=== PATIENT | female | born 1990 | race Two or more races ===

== ENCOUNTER 2016-07-16 15:39 | Outpatient (CLI) | payer SELFPAY ==
[2016-07-16 16:50] LABS: APPEARANCE,URINE CLEAR; BILIRUBIN,URINE NEGATIVE (NEGATIVE); GLUCOSE, URINE NEGATIVE (NEGATIVE); KETONES,URINE NEGATIVE (NEGATIVE); LEUKOCYTE ESTERASE,URINE TRACE (NEGATIVE); NITRITE,URINE NEGATIVE (NEGATIVE); PROTEIN,URINE NEGATIVE (NEGATIVE); URINE SPECIFIC GRAVITY 1.008; UROBILINOGEN,URINE NEGATIVE mg/dL (<2.0)
[2016-07-16 17:10] LABS: URINE BARBITURATES SCREEN NEGATIVE; URINE METHADONE SCREEN NEGATIVE; URINE OPIATES LOW NEGATIVE; URINE PHENCYCLIDINE SCREEN NEGATIVE
== END 2016-07-16 17:46 | disposition home or self-care (01) ==
LOC: LC 15:39
PROVIDERS: ATTEND Obstetrics & Gynecology
PROC: 4A1HXCZ Monitoring of Products of Conception, Cardiac Rate, External Approach (ICD-10-PCS; principal; 2016-07-16)
DX: O47.1 False labor at or after 37 completed weeks of gestation (principal); Z3A.39 39 weeks gestation of pregnancy
CPT/HCPCS: 59025; 80307; 81005

== ENCOUNTER 2016-07-17 22:02 | Inpatient (IN) | payer SELFPAY ==
[2016-07-17 22:39] LABS: AMNISURE (ROM) POSITIVE (NEGATIVE)
[2016-07-17 22:41] LABS: APPEARANCE,URINE CLOUDY; BILIRUBIN,URINE NEGATIVE (NEGATIVE); GLUCOSE, URINE NEGATIVE (NEGATIVE); KETONES,URINE NEGATIVE (NEGATIVE); LEUKOCYTE ESTERASE,URINE LARGE (NEGATIVE); NITRITE,URINE NEGATIVE (NEGATIVE); PROTEIN,URINE 30 mg/dL (NEGATIVE); URINE SPECIFIC GRAVITY 1.026
[2016-07-17] MEDS ORDERED: RINGERS SOLUTION,LACTATED 1,000 ML IV PRN (22:53)
[2016-07-17] MEDS ORDERED: RINGERS SOLUTION,LACTATED 1,000 ML IV ONE (22:53)
[2016-07-17 22:59] LABS: URINE BARBITURATES SCREEN NEGATIVE; URINE METHADONE SCREEN NEGATIVE; URINE OPIATES LOW NEGATIVE; URINE PHENCYCLIDINE SCREEN NEGATIVE
[2016-07-17 23:34] LABS: ABSOLUTE EOSINOPHILS # (AUTO) 0.3 10^3/uL (0.0-0.6); ABSOLUTE LYMPHOCYTES (AUTO) 1.6 10^3/uL (0.5-4.7); ABSOLUTE MONOCYTES (AUTO) 0.5 10^3/uL (0.1-1.4); ABSOLUTE NEUT (AUTO) 4.3 10^3/uL (1.7-8.2); BASOPHILS % (AUTO) 0.7 % (0-2); EOSINOPHILS % (AUTO) 4.1 % (0-6); HEMATOCRIT 37.5 % (36.0-47.0); HEMOGLOBIN 12.8 g/dL (12.0-15.5); HGB HCT DIFFERENCE 0.9; LYMPHOCYTES % (AUTO) 23.4 % (13-45); MEAN CORPUSCULAR HEMOGLOBIN 29.8 pg (27.0-33.4); MEAN CORPUSCULAR HGB CONC 34.1 g/dL (32.0-36.0); MEAN CORPUSCULAR VOLUME 87 fl (80-97); RED BLOOD COUNT 4.29 10^6/uL (3.72-5.28); RED CELL DISTRIBUTION WIDTH 13.4 % (11.5-14.0); SEGMENTED NEUTROPHILS % (AUTO) 64.8 % (42-78); WHITE BLOOD COUNT 6.7 10^3/uL (4.0-10.5)
[2016-07-18] MEDS ORDERED: OXYTOCIN/NORMAL SALINE 1,000 ML IV PRN ×2 (04:32→10:21)
[2016-07-18] MEDS ORDERED: OXYTOCIN/NORMAL SALINE 0 UNIT/0 ML RTUINJ ONE (04:51)
[2016-07-18] MEDS ORDERED: LIDOCAINE 1% INJ-PF (10 MG/ML) 30 ML SDV ONE (06:34)
[2016-07-18] MEDS ORDERED: MISOPROSTOL 0.2 MG TABLET ONE (06:34)
[2016-07-18] MEDS ORDERED: OXYTOCIN/NORMAL SALINE 20 UNIT/1,000 ML RTUINJ ONE (06:34)
--- NOTE | 2016-07-18 08:01 | L&D Flow Sheet ---
LD Flowsheet Datetime Report Generated by CPN: 07/18/2016 08:00 Datetime: 07/18/2016 07:56 Monitor Interventions for UA: Conception Adjusted (Juli Anjali, RN) Monitor Interventions for FHR: Ultrasound Adjusted (Juli Anjali, RN) Pitocin (milliunit): Pitocin Increased to (milliunits) @ 10 (Juli Anjali, RN) Datetime: 07/18/2016 07:41 Patient Position/Activity: Left Lateral; Peanut Ball (Juli Anjali, RN) Datetime: 07/18/2016 07:24 Patient Position/Activity: Tailors (Juli Anjali, RN) Datetime: 07/18/2016 07:17 Pitocin (milliunit): Pitocin Increased to (milliunits) @ 8 (Juli Anjali, RN) Datetime: 07/18/2016 07:15 Communication: Report Given to @ Colette, RN and A.Anjali, RN; care relinquished at this time. (Alana Gallegos RN) Datetime: 07/18/2016 07:06 NBP Sys/Nevin/Mean (mmHg): 111 (QS system process) : 65 (QS system process) : 81 (QS system process) Pulse: 54 (QS system process) LaborFlag: OB Triage (QS system process) Datetime: 07/18/2016 07:00 Monitor Mode: External; Palpation (Alana Gallegos RN) Frequency (min): 2.5-3.5 (Alana Gallegos RN) Quality: Moderate (Alana Gallegos RN) Duration (sec): 60-80 (Alana Gallegos RN) Resting Tone (Palpate): Relaxed (Alana Gallegos RN) Monitor Mode: External US (Alana Gallegos RN) FHR Baseline Rate : 115 (Alana Gallegos RN) Variability: Moderate 6-25 bpm (Alana Gallegos RN) Accelerations: 15X15 (Alana Gallegos RN) Decelerations: None (Alana Gallegos RN) Pitocin (milliunit): Pitocin Remains (milliunits) @ 6 (Alana Field, RN) Datetime: 07/18/2016 06:45 Monitor Mode: External; Palpation (Alana Field, RN) Frequency (min): 2.5-4.5 (Alana Field, RN) Quality: Moderate (Alana Field, RN) Duration (sec): 70-90 (Alana Field, RN) Resting Tone (Palpate): Relaxed (Alana Field, RN) Monitor Mode: External US (Alana Field, RN) FHR Baseline Rate : 115 (Alana Field, RN) Variability: Moderate 6-25 bpm (Alana Field, RN) Accelerations: 15X15 (Alana Field, RN) Decelerations: None (Alana Field, RN) Pitocin (milliunit): Pitocin Remains (milliunits) @ 6 (Alana Field, RN) Datetime: 07/18/2016 06:36 NBP Sys/Nevin/Mean (mmHg): 103 (QS system process) : 62 (QS system process) : 77 (QS system process) Pulse: 58 (QS system process) LaborFlag: OB Triage (QS system process) Datetime: 07/18/2016 06:30 Monitor Mode: External; Palpation (Alana Gallegos, RN) Frequency (min): 2-3 (Alana Gallegos, RN) Quality: Moderate (Alana Field, RN) Duration (sec): 60-110 (Alana , RN) Resting Tone (Palpate): Relaxed (Alana Gallegos, RN) Monitor Mode: External US (Alana Field, RN) FHR Baseline Rate : 120 (Alana Field, RN) Variability: Moderate 6-25 bpm (Alana Field, RN) Accelerations: 15X15 (Alana Field, RN) Decelerations: None (Alana Field, RN) Pitocin (milliunit): Pitocin Increased to (milliunits) @ 6 (Alana Field, RN) Datetime: 07/18/2016 06:29 Dilatation (cm): 7.0 (Alana Gallegos, RN) Effacement (%): 80 (Alana Gallegos, RN) Station: 0 (Alana Gallegos, RN) Exam by: MASOOD Pulliam (Alana Gallegos, RN) Vaginal Bleeding: Normal Show (Alana Gallegos, RN) Cervix, Consistency: Soft (Alana Gallegos, RN) Cervix, Position: Posterior (Alana Gallegos, RN) Datetime: 07/18/2016 06:15 Monitor Mode: External; Palpation (Alana Gallegos, RN) Frequency (min): 1.5-7 (Alana Gallegos, RN) Quality: Moderate (Alana Gallegos, RN) Duration (sec): 50-100 (Alana Gallegos, RN) Resting Tone (Palpate): Relaxed (Alana Gallegos, RN) Monitor Mode: External US (Alana Gallegos, RN) FHR Baseline Rate : 115 (Alana Gallegos, RN) Variability: Moderate 6-25 bpm (Alana Gallegos, RN) Accelerations: 15X15 (Alana Gallegos, RN) Decelerations: None (Alana Gallegos, RN) Pitocin (milliunit): Pitocin Remains (milliunits) @ 4 (Alana Gallegos, RN) Datetime: 07/18/2016 06:06 NBP Sys/Nevin/Mean (mmHg): 97 (QS system process) : 55 (QS system process) : 69 (QS system process) Pulse: 61 (QS system process) LaborFlag: OB Triage (QS system process) Datetime: 07/18/2016 06:00 Monitor Mode: External; Palpation (Alana Field, RN) Frequency (min): 4.5-5 (Alana Field, RN) Quality: Moderate (Alana Field, RN) Duration (sec): 60-80 (Alana Field, RN) Resting Tone (Palpate): Relaxed (Alana Field, RN) Monitor Mode: External US (Alana Field, RN) FHR Baseline Rate : 115 (Alana Field, RN) Variability: Moderate 6-25 bpm (Alana Field, RN) Accelerations: 15X15 (Alana Field, RN) Decelerations: None (Alana Field, RN) Pitocin (milliunit): Pitocin Increased to (milliunits) @ 4 (Alana Field, RN) Datetime: 07/18/2016 05:45 Monitor Mode: External; Palpation (Alana Field, RN) Frequency (min): 3-4 (Alana Field, RN) Quality: Moderate (Alana Field, RN) Duration (sec): 60-70 (Laana Field, RN) Resting Tone (Palpate): Relaxed (Alana Field, RN) Monitor Mode: External US (Alana Field, RN) FHR Baseline Rate : 115 (Alana Field, RN) Variability: Moderate 6-25 bpm (Alana Field, RN) Accelerations: 15X15 (Alana Field, RN) Decelerations: Variable (Alana Field, RN) Decelerations: None (Alana Field, RN) Pitocin (milliunit): Pitocin Remains (milliunits) @ 2 (Alana Field, RN) Datetime: 07/18/2016 05:36 NBP Sys/Nevin/Mean (mmHg): 96 (QS system process) : 55 (QS system process) : 71 (QS system process) Pulse: 56 (QS system process) LaborFlag: OB Triage (QS system process) Datetime: 07/18/2016 05:30 Monitor Mode: External; Palpation (Alana Field, RN) Frequency (min): 3-4.5 (Alana Field, RN) Quality: Moderate (Alana Field, RN) Duration (sec): 50-70 (Alana Field, RN) Resting Tone (Palpate): Relaxed (Alana Field, RN) Monitor Mode: External US (Alana Field, RN) FHR Baseline Rate : 115 (Alana Field, RN) Variability: Moderate 6-25 bpm (Alana Field, RN) Accelerations: 15X15 (Alana Field, RN) Decelerations: None (Alana Field, RN) Pitocin (milliunit): Pitocin Remains (milliunits) @ 2 (Alana Field, RN) Datetime: 07/18/2016 05:15 Monitor Mode: External; Palpation (Alana Field, RN) Frequency (min): 4-5.5 (Alana Field, RN) Quality: Moderate (Alana Field, RN) Duration (sec): 50-60 (Alana Field, RN) Resting Tone (Palpate): Relaxed (Alana Field, RN) Monitor Mode: External US (Alana Field, RN) FHR Baseline Rate : 115 (Alana Field, RN) Variability: Moderate 6-25 bpm (Alana Field, RN) Accelerations: 15X15 (Alana Field, RN) Decelerations: None (Alana Field, RN) Pitocin (milliunit): Pitocin Remains (milliunits) @ 2 (Alana Field, RN) Datetime: 07/18/2016 05:06 NBP Sys/Nevin/Mean (mmHg): 100 (QS system process) : 59 (QS system process) : 77 (QS system process) Pulse: 57 (QS system process) LaborFlag: OB Triage (QS system process) Datetime: 07/18/2016 05:02 Pitocin (milliunit): Pitocin Started (milliunits) @ 2; Pitocin 20 Units in 1000ml NS (Alana Field, RN) Datetime: 07/18/2016 05:00 Monitor Mode: External; Palpation (Alana Field, RN) Frequency (min): 5-7.5 (Alana Field, RN) Quality: Moderate (Alana Field, RN) Duration (sec): 80-120 (Alana Field, RN) Resting Tone (Palpate): Relaxed (Alana Field, RN) Monitor Mode: External US (Alana Field, RN) FHR Baseline Changes: Unable to Determine (Alana Field, RN) Variability: Moderate 6-25 bpm (Alana Field, RN) Datetime: 07/18/2016 04:55 I/O Interventions: Up to BR (Alana Field, RN) Datetime: 07/18/2016 04:38 NBP Sys/Nevin/Mean (mmHg): 103 (QS system process) : 65 (QS system process) : 80 (QS system process) Pulse: 51 (QS system process) LaborFlag: OB Triage (QS system process) Datetime: 07/18/2016 04:30 Monitor Mode: External; Palpation (Alana Gallegos, RN) Frequency (min): 4.5-6 (Alana Gallegos, RN) Quality: Moderate (Alana , RN) Duration (sec): 80-100 (Alana Field, RN) Resting Tone (Palpate): Relaxed (Alana , RN) Monitor Mode: External US (Alana , RN) FHR Baseline Rate : 115 (Alana Field, RN) Variability: Moderate 6-25 bpm (Alana Field, RN) Accelerations: 15X15 (Alana Field, RN) Datetime: 07/18/2016 04:18 Communication: RN Reviewed Strip; Provider Orders Received; Call/Page Placed to Provider (Alana Gallegos RN) Communication Comments: Informed Dr. Ashley of contraction frequency; orders received to start Pitocin (Alana Gallegos, RN) Datetime: 07/18/2016 04:07 NBP Sys/Nevin/Mean (mmHg): 153 (QS system process) : 64 (QS system process) : 85 (QS system process) Pulse: 55 (QS system process) LaborFlag: OB Triage (QS system process) Datetime: 07/18/2016 04:00 Monitor Mode: External; Palpation (Alana Field, RN) Frequency (min): 5-7 (Alana Field, RN) Quality: Moderate (Alana Field, RN) Duration (sec): 60-120 (Alana Field, RN) Resting Tone (Palpate): Relaxed (Alana Field, RN) Monitor Mode: External US (Alana Field, RN) FHR Baseline Rate : 120 (Alana Field, RN) Variability: Moderate 6-25 bpm (Alana Field, RN) Accelerations: 15X15 (Alana Field, RN) Decelerations: None (Alana Field, RN) Datetime: 07/18/2016 03:36 NBP Sys/Nevin/Mean (mmHg): 109 (QS system process) : 67 (QS system process) : 83 (QS system process) Pulse: 55 (QS system process) LaborFlag: OB Triage (QS system process) Datetime: 07/18/2016 03:30 Monitor Mode: External; Palpation (Alana Field, RN) Frequency (min): 4 (Alana Field, RN) Quality: Moderate (Alana Field, RN) Duration (sec): 90-110 (Alana Field, RN) Resting Tone (Palpate): Relaxed (Alana Field, RN) Monitor Mode: External US (Alana Field, RN) FHR Baseline Rate : 125 (Alana Field, RN) Variability: Moderate 6-25 bpm (Alana Field, RN) Accelerations: 15X15 (Alana Field, RN) Decelerations: None (Alana Field, RN) Datetime: 07/18/2016 03:14 Patient Position/Activity: Tailors (Alana Gallegos, RN) Datetime: 07/18/2016 03:06 NBP Sys/Nevin/Mean (mmHg): 104 (QS system process) : 59 (QS system process) : 77 (QS system process) Pulse: 65 (QS system process) LaborFlag: OB Triage (QS system process) Datetime: 07/18/2016 03:00 Monitor Mode: External; Palpation (Alana Gallegso RN) Frequency (min): 3-7 (Alana Gallegos RN) Quality: Moderate (Alana Gallegos RN) Duration (sec): 70-90 (Alana Gallegos RN) Resting Tone (Palpate): Relaxed (Alana Gallegos RN) Monitor Mode: External US (Alana Gallegos RN) FHR Baseline Rate : 120 (Alana Field, RN) Variability: Moderate 6-25 bpm (Alana Field, RN) Accelerations: 15X15 (Alana Field, RN) Decelerations: Variable (Alana Field, RN) Datetime: 07/18/2016 02:49 Patient Position/Activity: Left Extreme; Peanut Ball (Alana Field, RN) Datetime: 07/18/2016 02:36 NBP Sys/Nevin/Mean (mmHg): 95 (QS system process) : 50 (QS system process) : 67 (QS system process) Pulse: 61 (QS system process) LaborFlag: OB Triage (QS system process) Datetime: 07/18/2016 02:30 Monitor Mode: External; Palpation (Alana Field, RN) Frequency (min): 1.5-4 (Alana Field, RN) Quality: Moderate (Alana Field, RN) Duration (sec): 50-80 (Alana Field, RN) Resting Tone (Palpate): Relaxed (Alana Field, RN) Monitor Mode: External US (Alana Field, RN) FHR Baseline Rate : 120 (Alana Field, RN) Variability: Moderate 6-25 bpm (Alana Field, RN) Accelerations: 15X15 (Alana Field, RN) Decelerations: None (Alana Field, RN) Datetime: 07/18/2016 02:14 Patient Position/Activity: Peanut Ball; Right Extreme (Alana Field, RN) Datetime: 07/18/2016 02:07 NBP Sys/Nevin/Mean (mmHg): 100 (QS system process) : 58 (QS system process) : 76 (QS system process) Pulse: 59 (QS system process) LaborFlag: OB Triage (QS system process) Datetime: 07/18/2016 02:00 Monitor Mode: External; Palpation (Alana Field, RN) Frequency (min): 3-6 (Alana Field, RN) Quality: Moderate (Alana Field, RN) Duration (sec): 60-70 (Alana Field, RN) Resting Tone (Palpate): Relaxed (Alana Field, RN) Monitor Mode: External US (Alana Field, RN) FHR Baseline Rate : 130 (Alana Field, RN) Variability: Moderate 6-25 bpm (Alana Field, RN) Accelerations: 15X15 (Alana Field, RN) Decelerations: None (Alana Field, RN) Datetime: 07/18/2016 01:36 NBP Sys/Nevin/Mean (mmHg): 105 (QS system process) : 57 (QS system process) : 76 (QS system process) Pulse: 68 (QS system process) LaborFlag: OB Triage (QS system process) Datetime: 07/18/2016 01:30 Monitor Mode: External; Palpation (Alana Field, RN) Frequency (min): 3-4.5 (Alana Field, RN) Quality: Moderate (Alana Field, RN) Duration (sec): 60-90 (Alana Field, RN) Resting Tone (Palpate): Relaxed (Alana Field, RN) Monitor Mode: External US (Alana Field, RN) FHR Baseline Rate : 120 (Alana Field, RN) Variability: Moderate 6-25 bpm (Alana Field, RN) Accelerations: 15X15 (Alana Field, RN) Decelerations: None (Alana Field, RN) Datetime: 07/18/2016 01:27 Patient Position/Activity: Hands-Knees (Alana Field, RN) Datetime: 07/18/2016 01:22 Dilatation (cm): 5.5 (Alana Gallegos, RN) Effacement (%): 75 (Alana Gallegos RN) Station: -1 (Alana Gallegos RN) Exam by: MASOOD Pulliam (Alana Gallegos, RN) Datetime: 07/18/2016 01:09 I/O Interventions: Up to BR (Alana , RN) Datetime: 07/18/2016 01:08 NBP Sys/Nevin/Mean (mmHg): 132 (QS system process) : 79 (QS system process) : 97 (QS system process) Pulse: 67 (QS system process) LaborFlag: OB Triage (QS system process) Datetime: 07/18/2016 01:00 Monitor Mode: External; Palpation (Alana Field, RN) Frequency (min): 3.5-4.5 (Alana Field, RN) Quality: Moderate (Alana Field, RN) Duration (sec): 60-80 (Alana Field, RN) Resting Tone (Palpate): Relaxed (Alana Field, RN) Monitor Mode: External US (Alana Field, RN) FHR Baseline Rate : 120 (Alana Field, RN) Variability: Moderate 6-25 bpm (Alana Field, RN) Accelerations: 15X15 (Alana Field, RN) Decelerations: None (Alana Field, RN) Datetime: 07/18/2016 00:40 NBP Sys/Nevin/Mean (mmHg): 102 (QS system process) : 51 (QS system process) : 74 (QS system process) Pulse: 65 (QS system process) LaborFlag: OB Triage (QS system process) Datetime: 07/18/2016 00:30 Monitor Mode: External; Palpation (Alana Field, RN) Frequency (min): 4-7.5 (Alana Field, RN) Quality: Moderate (Alana Field, RN) Duration (sec): 70-80 (Alana Field, RN) Resting Tone (Palpate): Relaxed (Alana Field, RN) Monitor Mode: External US (Alana Field, RN) FHR Baseline Rate : 120 (Alana Field, RN) Variability: Moderate 6-25 bpm (Alana Field, RN) Accelerations: 15X15 (Alana Field, RN) Decelerations: None (Alana Field, RN) Datetime: 07/18/2016 00:08 NBP Sys/Nevin/Mean (mmHg): 102 (QS system process) : 61 (QS system process) : 76 (QS system process) Pulse: 67 (QS system process) LaborFlag: OB Triage (QS system process) Datetime: 07/18/2016 00:00 Monitor Mode: External; Palpation (Alana Field, RN) Frequency (min): 7.5-9.5 (Alana Field, RN) Quality: Moderate (Alana Field, RN) Duration (sec): 80-130 (Alana Field, RN) Resting Tone (Palpate): Relaxed (Alana Field, RN) Monitor Mode: External US (Alana Field, RN) FHR Baseline Rate : 125 (Alana Field, RN) Variability: Moderate 6-25 bpm (Alana Field, RN) Accelerations: 15X15 (Alana Field, RN) Decelerations: None (Alana Field, RN) Datetime: 07/17/2016 23:55 Patient Position/Activity: Birthing Ball (Alana Field, RN) Datetime: 07/17/2016 23:52 I/O Interventions: Up to BR (Alana Field, RN) Datetime: 07/17/2016 23:37 IV/Blood Work: IV Infusing per Order; New IV Bag Hung; IV Bag Number @ 2 (Alana Field, RN) Datetime: 07/17/2016 23:36 NBP Sys/Nevin/Mean (mmHg): 95 (QS system process) : 56 (QS system process) : 71 (QS system process) Pulse: 70 (QS system process) LaborFlag: OB Triage (QS system process) Datetime: 07/17/2016 23:30 Monitor Mode: External; Palpation (Alana Field, RN) Frequency (min): 6-8 (Alana Field, RN) Quality: Moderate (Alana Field, RN) Duration (sec): 90-120 (Alana Field, RN) Resting Tone (Palpate): Relaxed (Alana Field, RN) Monitor Mode: External US (Alana Field, RN) FHR Baseline Rate : 125 (Alana Field, RN) Variability: Moderate 6-25 bpm (Alana Field, RN) Accelerations: 15X15 (Alana Field, RN) Decelerations: None (Alana Field, RN) Datetime: 07/17/2016 23:08 Procedures: Labs Drawn (Alana Field, RN) Datetime: 07/17/2016 23:07 NBP Sys/Nevin/Mean (mmHg): 100 (QS system process) : 64 (QS system process) : 78 (QS system process) Pulse: 67 (QS system process) LaborFlag: OB Triage (QS system process) Datetime: 07/17/2016 23:05 Procedures: Consents Signed (Alana Gallegos, RN) Datetime: 07/17/2016 23:00 Monitor Mode: External; Palpation (Alana Gallegos, RN) Frequency (min): 5-6.5 (Alana Gallegos RN) Quality: Moderate (Alana Gallegos, RN) Duration (sec): 80-90 (Alana Gallegos, RN) Resting Tone (Palpate): Relaxed (Alana Gallegos, RN) Monitor Mode: External US (Alana Gallegos, RN) FHR Baseline Rate : 120 (Alana Gallegos, RN) Variability: Moderate 6-25 bpm (Alana Gallegos, RN) Accelerations: 15X15 (Alana Gallegos, RN) Decelerations: None (Alana Gallegos, RN) Datetime: 07/17/2016 22:54 IV/Blood Work: IV Started; IV Bolus Started; IV Infusing per Order (Alana Gallegos RN) Datetime: 07/17/2016 22:47 Dilatation (cm): 4.5 (Alana Gallegos RN) Effacement (%): 75 (Alana Gallegos RN) Station: -1 (Alana Gallegos RN) Exam by: MASOOD Pulliam (Alana Gallegos RN) Membrane Status: Ruptured (Sara Quispe RN) Membranes Ruptured Date/Time: 07/17/2016 21:30 (Sara Quispe RN) Membranes Rupture Method: Spontaneous (Sara Quispe RN) Amniotic Fluid Color: Clear (Sara Quispe RN) Amniotic Fluid Amount: Small (Sara Quispe RN) Amniotic Fluid Odor: Normal (Sara Quispe RN) Datetime: 07/17/2016 22:39 Frequency (min): q5 minutes (Alana Gallegos RN) Pain Scale: 4 (Alana Gallegos RN) Pain Presence: Intermittent (Alana Gallegos RN) Pain Type: Cramping; Contraction (Alana Gallegos RN) Pain Location: Abdomen; Back (Alana Gallegos RN) Pain Goal: 0 (Alana Gallegos RN) Pain Relief Measures: Comfort Measures (Alana Gallegos RN) Pain Coping: Talking Through Contractions; Breathing Through Contractions (Alana Gallegos RN) Vaginal Bleeding: Normal Show (Alana Gallegos RN) Level of Consciousness: Fully Conscious (Alana Gallegos RN) DTR's/Clonus: DTRs 2+; No Clonus (Alana Gallegos RN) Headache: Denies (Alana Gallegos RN) Breath Sounds, Left: Clear and Equal (Alana Gallegos RN) Breath Sounds, Right: Clear and Equal (Alana Gallegos RN) Nausea/Vomiting: Denies (Alana Gallegos RN) RUQ Epigastric Pain: Denies (Alana Gallegos RN) Instructional Method: Verbal; Patient Instructed; Family/Support Person Instructed; Verbalized Understanding (Alana Gallegos RN) Plan of Care: Plan of Care Discussed; Vaginal Delivery (Alana Gallegos RN) Unit Routine: [place] to Room; Call [place]; Bed; Visiting Policy; Waiting Areas; Security; Phone/Cell Phone Use; Photography; Unit Personnel; Handwashing; Flu/Illness Precautions; Monitoring; IV Pumps; Safety/Fall Risk Prevention; Bathroom Privileges (Alana Gallegos RN) LaborFlag: OB Triage (QS system process) Datetime: 07/17/2016 22:36 NBP Sys/Nevin/Mean (mmHg): 102 (QS system process) : 61 (QS system process) : 74 (QS system process) Pulse: 65 (QS system process) LaborFlag: OB Triage (QS system process)
--- NOTE | 2016-07-18 08:49 | L&D Progress Notes ---
PROGRESS NOTES Datetime Report Generated by CPN: 07/18/2016 08:48 PROGRESS NOTE Impression: Normal Progression of Labor Procedures: Sterile Vag Exam Plan: Continue Present Management Informed Consent Obtained: Vaginal Delivery Vital Signs : Reviewed; Within Normal Limits Comment: Coping well with ctx, does not desire anything for pain control Continue pitocin Anticipate VAGINAL EXAM Dilatation: 8 Effacement: 80 Station: -1 Contractions: 2-4 MEMBRANES Membranes: Ruptured Membranes: Ruptured FETUS A FHR - Baseline: 150 Monitoring: External US Variability: Moderate 6-25bpm Accelerations: 15X15 Decelerations: None : 39.0 Presentation: Vertex SIGNATURE SIGNATURE: [id number] Assignment: Alana Bautista MD Signature: with User ID: [email or web address] : with User ID: [email or web address]
[2016-07-18] MEDS ORDERED: DIBUCAINE 1% OINTMENT 28 GM TP PRN (10:21)
[2016-07-18] MEDS ORDERED: ZOLPIDEM TARTRATE 5 MG TABLET PO PRN (10:21)
[2016-07-18] MEDS ORDERED: ACETAMINOPHEN WITH CODEINE #3 TABLET PO PRN ×2 (10:21)
[2016-07-18] MEDS ORDERED: BENZOCAINE/MENTHOL AEROSOL SPRAY 56 ML TOP PRN (10:21)
[2016-07-18] MEDS ORDERED: DIPH/PERTUSS(ACELL)/TETANUS VAC/PF 0.5 ML SYR (>=10YO) IM PRN (10:21)
[2016-07-18] MEDS ORDERED: MEASLES,MUMPS&RUBELLA VACC/PF 0.5 ML VIAL SUBCUT PRN (10:21)
[2016-07-18] MEDS ORDERED: IBUPROFEN 800 MG TABLET ONE (11:24)
[2016-07-18] MEDS: IBUPROFEN 800 MG TABLET PO SCH ×2 (11:25→22:09)
--- NOTE | 2016-07-18 12:10 | Admission Physical ---
Datetime Report Generated by CPN: 07/18/2016 12:10 CURRENT ADMISSION Chief Complaint: Uterine Contractions; Suspected Ruptured Membranes Indication for Induction: Not Applicable Admit Plan: Admit to Unit ALLERGIES Medication Allergies: No Medication Allergies: No Known Allergies (07/18/2016) Medication Allergies: No Known Allergies (12/14/2011) Latex: No Latex Allergies Food Allergies: N/A Environmental Allergies: N/A OBSTETRICAL HISTORY EDC: 07/21/2016 00:00 : 3 Para: 2 Term: 2 : 0 SAB: 0 IAB: 0 Ectopic: 0 Livin Cesareans: 0 VBACs: 0 Multiple Births: 0 Gestational Diabetes: No Rh Sensitization: No Incompetent Cervix: No RUPESH: No Infertility: No ART Treatment: No Uterine Anomaly: No IUGR: No Hx Previous C/S: No Macrosomia: No Hx Loss/Stillborn: No PIH: No Hx : No Placenta Previa/Abruption: No Depression/PP Depression: No PTL/PROM: No Post Hemorrhage: No Current Procedures: Ultrasound; NST Obstetrical History Comments: G1 - 09/2009, , Girl G2 - 11/2011, , Girl G3 - Current SEE RECORDS Alcohol: No Marijuana : No Cocaine: No Other Illicit Drugs: No Cigarettes: Former Smoker. [id number] MEDICAL HISTORY Diabetes: No Blood Transfusion: No Pulmonary Disease (Asthma, TB): No Breast Disease: No Hypertension: No Healthcare Specialist Surgery: No Heart Disease: No Hosp/Surgery: No Autoimmune Disorder: No Anesthetic Complications: No Kidney Disease: No Abnormal Pap Smear: No Neuro/Epilepsy: No Psychiatric Disorders: No Other Medical Diseases: No Hepatitis/Liver Disease: No Significant Family History: No Varicosities/Phlebitis: No Trauma/Violence : No Thyroid Dysfunction: No INFECTIOUS HISTORY Gonorrhea: No Genital Herpes: No Chlamydia: Yes Tuberculosis: No Syphilis: No Hepatitis: No HIV/AIDS Exposure: No Rash or Viral Illness: No HPV: No Infectious History Comments: Chlamydia 2013 PHYSICAL EXAM General: Normal HEENT: Normal Neurologic: Normal Thyroid: Normal Heart: Normal Lungs: Normal Breast: Deferred Back: Normal Abdomen: Normal Genitourinary Exam: Normal Extremities: Normal DTRs: Normal Pelvic Type: Adequate Vital Signs: Reviewed VAGINAL EXAM Dilatation: 8 Effacement: 80 Station: -1 Contraction Comments: 2-4 MEMBRANES Membranes: Ruptured Membranes: Ruptured FETUS A EGA: 39.3 Monitoring: External US FHR- Baseline: 120 Variability: Moderate 6-25bpm Decelerations: None FHR Category: Category I Presentation: Vertex Admit Comment: efw=8 lbs PLANS FOR LABOR AND DELIVERY Labor and Delivery: None Pain Management: None Feeding Preference: Both Benefit of Breast Feed Discussed: Yes Circumcision: No INFORMED CONSENT Informed Consent Obtained: Vaginal Delivery Signature: with User ID: [email or web address]
--- NOTE | 2016-07-18 12:22 | Delivery Summary ---
Del Sum A-C Datetime Report Generated by CPN: 07/18/2016 12:22 ADMISSION DATA Chief Complaint: Uterine Contractions; Suspected Ruptured Membranes Indication for Induction: Not Applicable Admission Impression: Term, Intrauterine ; Active Labor; Ruptured Membranes Admit Provider Comments: efw=8 lbs DELIVERY PERSONNEL Delivery Doctor:: Zelda Farah CNM Nurse Interventional Sale Consultant Certified:: Zelda Farah CNM Labor and Delivery Nurse:: Juli Alba RNengine testing supervisor Nurse:: Colette Broman, RN MATERNAL INFORMATION Delivery Anesthesia: None Medications After Delivery: Pitocin Drip 20 Units/1000ml NSS Estimated Blood Loss (ml): 250 Maternal Complications: None Provider Comments: of viable male over intact perienum. Head, shoulders, and body delivered without difficulty, infant with spontaneous cry and respirations, to maternal abdomen, cord clamped X2, cut free by pts . Spontaneous delivery of placenta, via gambino, appears intact 3 VC. Vagina and perineum inspected no lacerations noted, hemostasis acheived with external fundal massage and IV pitocin. Mother and in stable condition, routine pp care. LABOR SUMMARY EDC: 07/21/2016 00:00 No. Babies in Womb: 1 Attempted: No Labor Anesthesia: None LABOR INFORMATION Reason for Induction: Not Applicable Onset of Labor: 07/18/2016 01:22 Complete Dilatation: 07/18/2016 10:03 Oxytocin: Augmentation Group B Beta Strep: Negative Antibiotics # of Doses: 0 Steroids Given: None Reason Steroids Not Administered: Not Applicable MEMBRANES Membranes Rupture Method: Spontaneous Rupture of Membranes: 07/17/2016 21:30 Length of Rupture (hr): 12.60 Amniotic Fluid Color: Clear Amniotic Fluid Amount: Small Amniotic Fluid Odor: Normal STAGES OF LABOR Stage 1 hr: 8 Stage 1 min: 41 Stage 2 hr: 0 Stage 2 min: 3 Stage 3 hr: 0 Stage 3 min: 5 Total Time in Labor hr: 8 Total Time in Labor min: 49 VAGINAL DELIVERY Episiotomy: None Laceration Extension: N/A Laceration Type: None Laceration Repair: Not Applicable Sponge Count Correct: N/A Sharps Count Correct: N/A BABY A INFORMATION Delivery Date/Time: 07/18/2016 10:06 Method of Delivery: Vaginal Born in Route : No : N/A Forceps: N/A Vacuum Extraction: N/A Shoulder Dystocia : No PRESENTATION/POSITION BABY A Presentation: Cephalic Cephalic Presentation: Vertex Vertex Position: Right Occipital Anterior Breech Presentation: N/A PLACENTA INFORMATION BABY A Placenta Delivery Time : 07/18/2016 10:11 Placenta Method of Delivery: Spontaneous Placenta Status: Delivered SCORES BABY A Heart Rate 1 min: >100 bpm Resp Effort 1 min: Good Cry Reflex Irritability 1 min: Cough or Sneeze or Pulls Away Muscle Tone 1 min: Active Motion Color 1 min: Body [place], Extremities Blue Resuscitation Effort 1 min: Tactile Stimulation SCORE 1 MIN: 9 Heart Rate 5 min: >100 bpm Resp Effort 5 min: Good Cry Reflex Irritability 5 min: Cough or Sneeze or Pulls Away Muscle Tone 5 min: Active Motion Color 5 min: Body [place], Extremities Blue Resuscitation Effort 5 min: Tactile Stimulation SCORE 5 MIN: 9 INFORMATION BABY A Gestational Age at Delivery: 39.4 Gestational Status: Full Term- 39- 40.6 Weeks Infant Outcome : Liveborn Infant Condition : Stable Sex: Male IDENTIFICATION BABY A Verification Date/Time: 07/17/2016 10:34 ID Band Number: [id number] Mother's Name Verified: Yes RN Verifying : Selvin Dickson RN Additional Verifying Personnel: A. Anjali RN WEIGHT/LENGTH BABY A Infant Birthweight (gm): 3370 Weight (lb): 7 Weight (oz): 7 Infant Length (in): 20.50 Infant Length (cm): 52.07 CORD INFORMATION BABY A No. Cord Vessels: 3 Nuchal Cord : N/A Cord Blood Taken: Yes-For Eval (Mom's Blood Type - or O+) Infant Suction: None ASSESSMENT BABY A Complications: None Physical Findings at Delivery: Within Normal Limits Respirations: Appears Normal Skin to Skin: Yes Skin to Skin Time (min): 60 Real Estate Management Specialist/ALS Called : No Care By: Cathy Lucero RNC Transferred To: Remains with Mother BABY B INFORMATION : N/A SIGNATURES Assignment: Alana Bautista MD Signature: with User ID: Bryce : with User ID: Bryce
[2016-07-18] MEDS: DOCUSATE SODIUM 100 MG CAPSULE PO SCH (17:31)
[2016-07-18] MEDS: FERROUS SULFATE 325 MG TABLET PO SCH (17:31)
--- NOTE | 2016-07-18 19:01 | L&D Flow Sheet ---
LD Flowsheet Datetime Report Generated by CPN: 07/18/2016 19:00 Datetime: 07/18/2016 12:00 Pain Scale: 1 (Colette Broman, RN) Pain Presence: Intermittent (Colette Broman, RN) Pain Type: Cramping (Colette Broman, RN) Pain Location: Abdomen (Colette Broman, RN) Pain Goal: 0 (Colette Broman, RN) Pain Relief Measures: Comfort Measures (Colette Broman, RN) Datetime: 07/18/2016 11:49 NBP Sys/Nevin/Mean (mmHg): 107 (QS system process) : 63 (QS system process) : 79 (QS system process) Pulse: 62 (QS system process) Datetime: 07/18/2016 11:34 NBP Sys/Nevin/Mean (mmHg): 97 (QS system process) : 63 (QS system process) : 76 (QS system process) Pulse: 65 (QS system process) Datetime: 07/18/2016 11:30 Stage of : Recovery (Colette Broman, RN) Respirations: 18 (Coletet Broman, RN) Pain Scale: 1 (Colette Broman, RN) Pain Presence: Intermittent (Colette Broman, RN) Pain Type: Cramping (Colette Broman, RN) Pain Location: Abdomen (Colette Broman, RN) Pain Goal: 0 (Colette Broman, RN) Pain Relief Measures: Comfort Measures (Colette Broman, RN) Datetime: 07/18/2016 11:20 NBP Sys/Nevin/Mean (mmHg): 96 (QS system process) : 67 (QS system process) : 78 (QS system process) Pulse: 54 (QS system process) Respirations: 16 (Colette Broman, RN) Datetime: 07/18/2016 11:04 NBP Sys/Nevin/Mean (mmHg): 101 (QS system process) : 60 (QS system process) : 76 (QS system process) Pulse: 60 (QS system process) Respirations: 18 (Colette Broman, RN) Datetime: 07/18/2016 11:00 Stage of : Recovery (Colette Broman, RN) Pain Scale: 3 (Colette Broman, RN) Pain Presence: Intermittent (Colette Broman, RN) Pain Type: Cramping (Colette Broman, RN) Pain Location: Abdomen (Colette Broman, RN) Pain Goal: 0 (Colette Broman, RN) Pain Relief Measures: Comfort Measures (Colette Broman, RN) Datetime: 07/18/2016 10:49 NBP Sys/Nevin/Mean (mmHg): 108 (QS system process) : 60 (QS system process) : 78 (QS system process) Pulse: 57 (QS system process) Respirations: 16 (Colette Broman, RN) Datetime: 07/18/2016 10:45 Stage of : Recovery (Colette Broman, RN) Pain Scale: 0 (Colette Broman, RN) Pain Presence: None/Denies (Colette Broman, RN) Pain Type: N/A (Colette Broman, RN) Pain Goal: 0 (Colette Broman, RN) Pain Relief Measures: Comfort Measures (Colette Broman, RN) Datetime: 07/18/2016 10:34 NBP Sys/Nevin/Mean (mmHg): 118 (QS system process) : 61 (QS system process) : 85 (QS system process) Pulse: 62 (QS system process) Respirations: 18 (Colette Broman, RN) Datetime: 07/18/2016 10:26 Stage of : Recovery (Colette Broman, RN) Pain Scale: 0 (Colette Broman, RN) Pain Presence: None/Denies (Colette Broman, RN) Pain Type: N/A (Colette Broman, RN) Pain Goal: 0 (Colette Broman, RN) Pain Relief Measures: Comfort Measures (Colette Broman, RN) Datetime: 07/18/2016 10:20 NBP Sys/Nevin/Mean (mmHg): 131 (QS system process) : 60 (QS system process) : 80 (QS system process) Pulse: 67 (QS system process) Respirations: 20 (Colette Broman, RN) LaborFlag: OB Triage (QS system process) Datetime: 07/18/2016 10:11 Temperature (F): 98.0 (Colette Broman, RN) Temperature (C): 36.7 (QS system process) Pain Scale: 0 (Colette Broman, RN) Pain Presence: None/Denies (Colette Broman, RN) Pain Type: N/A (Colette Broman, RN) Pain Goal: 0 (Colette Broman, RN) Pain Relief Measures: Comfort Measures (Colette Broman, RN) LaborFlag: OB Triage (QS system process) Datetime: 07/18/2016 10:06 Stage 2 Comments: of viable baby boy, placed on mothers abdomen (Juli Anjali, RN) Datetime: 07/18/2016 10:04 Comments: RN and CNM remain at bedside while pt is pushing, continuously monitoring FHT (Colette Dickson RN) Pushing: Coached on Pushing; Urge to Push (Juli Alba, RN) Pushing Position: Pushing with Contractions (Juli Alba, RN) Pushing Progress: Descent with Pushing (Juli Alba, RN) Datetime: 07/18/2016 10:03 Dilatation (cm): 10.0 (Juli Pugames, RN) Effacement (%): 100 (Juli Pugames, RN) Station: 1 (Juli Alba, RN) Exam by: George Farah CNM (Juli Pugames, RN) Datetime: 07/18/2016 10:00 Monitor Mode: External (Colette Broman, RN) Frequency (min): 2 (Colette Broman, RN) Quality: Moderate (Colette Broman, RN) Duration (sec): 60 (Colette Broman, RN) Pattern: Normal: <= 5 Contractions in 10 Minutes (Colette Broman, RN) Resting Tone (Palpate): Relaxed (Colette Broman, RN) Monitor Mode: External US (Colette Broman, RN) FHR Baseline Rate : 135 (Colette Broman, RN) FHR Baseline Changes: No Baseline Change (Colette Broman, RN) Variability: Moderate 6-25 bpm (Colette Broman, RN) Accelerations: None (Colette Broman, RN) Decelerations: None (Colette Broman, RN) Pitocin (milliunit): Pitocin Remains (milliunits) @ 12 (Colette Broman, RN) Datetime: 07/18/2016 09:56 I/O Interventions: Up to BR (Juli Alba, RN) Patient Care Comments: CNM and RN remain at bedside (Juli Alba, RN) Datetime: 07/18/2016 09:50 Dilatation (cm): 9.0 (Juli Anjali, RN) Station: 0 (Juli Anjali, RN) Exam by: George Farah CNM (Juli Anjali, RN) Datetime: 07/18/2016 09:49 Communication Comments: George Farah CNM at bedside (Juli Anjali, RN) Datetime: 07/18/2016 09:45 Monitor Mode: External (Colette Broman, RN) Frequency (min): 1-2 (Colette Broman, RN) Quality: Moderate (Colette Broman, RN) Duration (sec): 40-70 (Colette Broman, RN) Pattern: Normal: <= 5 Contractions in 10 Minutes (Colette Broman, RN) Resting Tone (Palpate): Relaxed (Colette Broman, RN) Monitor Mode: External US (Colette Broman, RN) FHR Baseline Rate : 130 (Colette Broman, RN) FHR Baseline Changes: No Baseline Change (Colette Broman, RN) Variability: Moderate 6-25 bpm (Colette Broman, RN) Accelerations: None (Colette Broman, RN) Decelerations: None (Colette Broman, RN) Pitocin (milliunit): Pitocin Remains (milliunits) @ 12 (Colette Broman, RN) Datetime: 07/18/2016 09:30 Monitor Mode: External (Colette Broman, RN) Frequency (min): 2-3 (Colette Broman, RN) Quality: Moderate (Colette Broman, RN) Duration (sec): 60-80 (Colette Broman, RN) Pattern: Normal: <= 5 Contractions in 10 Minutes (Colette Broman, RN) Resting Tone (Palpate): Relaxed (Colette Broman, RN) Monitor Mode: External US (Colette Broman, RN) FHR Baseline Rate : 140 (Colette Broman, RN) FHR Baseline Changes: No Baseline Change (Colette Broman, RN) Variability: Moderate 6-25 bpm (Colette Broman, RN) Accelerations: 15X15 (Colette Broman, RN) Decelerations: None (Colette Broman, RN) Pitocin (milliunit): Pitocin Remains (milliunits) @ 12 (Colette Broman, RN) Datetime: 07/18/2016 09:22 Membrane Comments: fore bag ruptured (Juli Anjali, RN) Datetime: 07/18/2016 09:21 Communication Comments: H. Ggaan CNM at bedside (Juli Anjali, RN) Datetime: 07/18/2016 09:15 Monitor Mode: External (Colette Broman, RN) Frequency (min): 1-2 (Colette Broman, RN) Quality: Moderate (Colette Broman, RN) Duration (sec): 50-70 (Colette Broman, RN) Pattern: Normal: <= 5 Contractions in 10 Minutes (Colette Broman, RN) Resting Tone (Palpate): Relaxed (Colette Broman, RN) Monitor Mode: External US (Colette Broman, RN) FHR Baseline Changes: No Baseline Change (Colette Broman, RN) Variability: Moderate 6-25 bpm (Colette Broman, RN) Accelerations: None (Colette Broman, RN) Decelerations: None (Colette Broman, RN) Comments: unable to determine due to pt position (Colette Broman, RN) Pitocin (milliunit): Pitocin Remains (milliunits) @ 12 (Colette Broman, RN) Datetime: 07/18/2016 09:00 Monitor Mode: External (Colette Broman, RN) Frequency (min): 3-4 (Colette Broman, RN) Quality: Moderate (Colette Broman, RN) Duration (sec): 50-70 (Colette Broman, RN) Pattern: Normal: <= 5 Contractions in 10 Minutes (Colette Broman, RN) Resting Tone (Palpate): Relaxed (Colette Broman, RN) Monitor Mode: External US (Colette Broman, RN) FHR Baseline Rate : 125 (Colette Broman, RN) FHR Baseline Changes: No Baseline Change (Colette Broman, RN) Variability: Moderate 6-25 bpm (Colette Broman, RN) Accelerations: None (Colette Broman, RN) Decelerations: None (Colette Broman, RN) Pitocin (milliunit): Pitocin Remains (milliunits) @ 12 (Colette Bromtonai, RN) Communication: RN at Bedside (Juli Anjali, RN) Datetime: 07/18/2016 08:48 Patient Position/Activity: Tailors (Juli Anjali, RN) Datetime: 07/18/2016 08:45 Monitor Mode: External (Juli Anjali, RN) Frequency (min): 2-3 (Juli Anjali, RN) Quality: Moderate (Juli Anjali, RN) Duration (sec): 40-60 (Juli Anjali, RN) Pattern: Normal: <= 5 Contractions in 10 Minutes (Juli Anjali, RN) Resting Tone (Palpate): Relaxed (Juli Anjali, RN) Monitor Mode: External US (Juli Anjali, RN) FHR Baseline Rate : 140 (Juli Anjali, RN) FHR Baseline Changes: No Baseline Change (Juli Anjali, RN) Variability: Moderate 6-25 bpm (Juli Anjali, RN) Accelerations: None (Juli Anjali, RN) Decelerations: None (Juli Anjali, RN) Pitocin (milliunit): Pitocin Remains (milliunits) @ 12 (Juli Anjali, RN) Datetime: 07/18/2016 08:42 Dilatation (cm): 8.5 (Juli Anjali, RN) Station: -1 (Juli Anjali, RN) Exam by: H. Gagan CNM (Juli Anjali, RN) Datetime: 07/18/2016 08:40 Communication Comments: H .Gagan CNM at bedside (Juli Anjali, RN) Datetime: 07/18/2016 08:30 Monitor Mode: External (Juli Anjali, RN) Frequency (min): 3-5 (Juli Anjali, RN) Quality: Moderate (Juli Anjali, RN) Duration (sec): 40-90 (Juli Anjali, RN) Pattern: Normal: <= 5 Contractions in 10 Minutes (Juli Anjali, RN) Resting Tone (Palpate): Relaxed (Juli Anjali, RN) Monitor Mode: External US (Juli Anjali, RN) FHR Baseline Rate : 125 (Juli Anjali, RN) FHR Baseline Changes: No Baseline Change (Juli Anjali, RN) Variability: Moderate 6-25 bpm (Juli Anjali, RN) Accelerations: 15X15 (Juli Anjali, RN) Decelerations: None (Juli Anjali, RN) Pitocin (milliunit): Pitocin Remains (milliunits) @ 12 (Juli Anjali, RN) Datetime: 07/18/2016 08:23 Monitor Interventions for FHR: Ultrasound Adjusted (Juli Anjali, RN) Pitocin (milliunit): Pitocin Increased to (milliunits) @ 12 (Juli Anjali, RN) Patient Position/Activity: Tailors (Juli Anjali, RN) Datetime: 07/18/2016 08:15 Monitor Mode: External (Juli Anjali, RN) Frequency (min): 2-3 (Juli Anjali, RN) Quality: Moderate (Juli Anjali, RN) Duration (sec): 40-60 (Juli Anjali, RN) Pattern: Normal: <= 5 Contractions in 10 Minutes (Juli Anjali, RN) Resting Tone (Palpate): Relaxed (Juli Anjali, RN) Monitor Mode: External US (Juli Anjali, RN) FHR Baseline Rate : 125 (Juli Anjali, RN) FHR Baseline Changes: No Baseline Change (Juli Anjali, RN) Variability: Moderate 6-25 bpm (Juli Anjali, RN) Accelerations: 15X15 (Juli Anjali, RN) Decelerations: None (Juli Anjali, RN) Level of Consciousness: Fully Conscious (Juli Anjali, RN) DTR's/Clonus: DTRs 2+ (Juli Anjali, RN) Headache: Denies (Juli Anjali, RN) Breath Sounds, Left: Clear and Equal (Juli Anjali, RN) Breath Sounds, Right: Clear and Equal (Juli Anjali, RN) Nausea/Vomiting: Denies (Juli Anjali, RN) RUQ Epigastric Pain: Denies (Juli Anjali, RN) Pitocin (milliunit): Pitocin Remains (milliunits) @ 10 (Juli Anjali, RN) Datetime: 07/18/2016 08:00 Monitor Mode: External; Palpation (Juli Anjali, RN) Frequency (min): 3-4 (Juli Anjali, RN) Quality: Moderate (Juli Anjali, RN) Duration (sec): 60-90 (Juli Anjali, RN) Pattern: Normal: <= 5 Contractions in 10 Minutes (Juli Anjali, RN) Resting Tone (Palpate): Relaxed (Juli Anjali, RN) Monitor Mode: External US (Juli Anjali, RN) FHR Baseline Rate : 120 (Juli Anjali, RN) FHR Baseline Changes: No Baseline Change (Juli Anjali, RN) Variability: Moderate 6-25 bpm (Juli Anjali, RN) Accelerations: 15X15 (Juli Anjali, RN) Decelerations: None (Juli Anjali, RN) Pitocin (milliunit): Pitocin Remains (milliunits) @ 10 (Juli Anjali, RN) Datetime: 07/18/2016 07:56 Monitor Interventions for UA: [place] Adjusted (Juli Anjali, RN) Monitor Interventions for FHR: Ultrasound Adjusted (Juli Anjali, RN) Pitocin (milliunit): Pitocin Increased to (milliunits) @ 10 (Juli Anjali, RN) Datetime: 07/18/2016 07:45 Monitor Mode: External (Juli Anjali, RN) Frequency (min): 3-4 (Juli Anjali, RN) Quality: Moderate (Juli Anjali, RN) Duration (sec): 60-90 (Juli Anjali, RN) Pattern: Normal: <= 5 Contractions in 10 Minutes (Juli Anjali, RN) Resting Tone (Palpate): Relaxed (Juli Anjali, RN) Monitor Mode: External US (Juli Anjali, RN) FHR Baseline Rate : 120 (Juli Anjali, RN) FHR Baseline Changes: No Baseline Change (Juli Anjali, RN) Variability: Moderate 6-25 bpm (Juli Anjali, RN) Accelerations: None (Juli Anjali, RN) Decelerations: None (Juli Anjali, RN) Pitocin (milliunit): Pitocin Remains (milliunits) @ 8 (Juli Anjali, RN) Datetime: 07/18/2016 07:41 Patient Position/Activity: Left Lateral; Peanut Ball (Juli Anjali, RN) Datetime: 07/18/2016 07:30 Monitor Mode: External (Juli Anjali, RN) Frequency (min): 3 (Juli Anjali, RN) Quality: Moderate (Juli Anjali, RN) Duration (sec): 70-90 (Juli Anjali, RN) Pattern: Normal: <= 5 Contractions in 10 Minutes (Juli Anjali, RN) Resting Tone (Palpate): Relaxed (Juli Anjali, RN) Monitor Mode: External US (Juli Anjali, RN) FHR Baseline Rate : 120 (Juli Anjali, RN) Variability: Moderate 6-25 bpm (Juli Anjali, RN) Accelerations: None (Juli Anjali, RN) Decelerations: None (Juli Anjali, RN) Pitocin (milliunit): Pitocin Remains (milliunits) @ 8 (Juli Anjali, RN) Datetime: 07/18/2016 07:24 Patient Position/Activity: Tailors (Juli Anjali, RN) Datetime: 07/18/2016 07:17 Pitocin (milliunit): Pitocin Increased to (milliunits) @ 8 (Juli Alba, RN) Datetime: 07/18/2016 07:15 Monitor Mode: External (Juli Anjali, RN) Frequency (min): 3-4 (Juli Anjali, RN) Quality: Moderate (Juli Anjali, RN) Duration (sec): 60-90 (Juli Anjali, RN) Pattern: Normal: <= 5 Contractions in 10 Minutes (Juli Anjali, RN) Resting Tone (Palpate): Relaxed (Jlui Anjali, RN) Monitor Mode: External US (Juli Anjali, RN) FHR Baseline Rate : 120 (Juli Anjali, RN) Variability: Moderate 6-25 bpm (Juli Anjali, RN) Accelerations: 15X15 (Juli Anjali, RN) Decelerations: None (Juli Anjali, RN) Pitocin (milliunit): Pitocin Remains (milliunits) @ 6 (Juli Anjali, RN) Communication: Report Given to @ Colette RN and MASOOD Michele; care relinquished at this time. (Alana Gallegos RN) Datetime: 07/18/2016 07:06 NBP Sys/Nevin/Mean (mmHg): 111 (QS system process) : 65 (QS system process) : 81 (QS system process) Pulse: 54 (QS system process) Respirations: 18 (Colette Dickson RN) LaborFlag: OB Triage (QS system process) Datetime: 07/18/2016 07:00 Monitor Mode: External; Palpation (Alana Gallegos RN) Frequency (min): 2.5-3.5 (Alana Gallegos RN) Quality: Moderate (Alana Gallegos RN) Duration (sec): 60-80 (Alana Gallegos RN) Resting Tone (Palpate): Relaxed (Alana Gallegos RN) Monitor Mode: External US (Alana Gallegos RN) FHR Baseline Rate : 115 (Alana Gallegos RN) Variability: Moderate 6-25 bpm (Alana Gallegos RN) Accelerations: 15X15 (Alana Gallegos RN) Decelerations: None (Alana Gallegos RN) Pitocin (milliunit): Pitocin Remains (milliunits) @ 6 (Alana Gallegos RN)
[2016-07-19] MEDS: IBUPROFEN 800 MG TABLET PO SCH ×3 (05:55→21:34)
--- NOTE | 2016-07-19 06:01 | L&D General Admission ---
General Admit Datetime Report Generated by CPN: 07/19/2016 06:00 INFORMATION Patient Age: 26 (07/16/2016 15:40:QS system process) EDC: 07/21/2016 00:00 (07/16/2016 15:52:Alyse Sanchez RN) : 3 (07/16/2016 15:52:Alyse Sanchez RN) Para: 2 (07/16/2016 15:52:Alyse Sanchez RN) Term: 2 (07/16/2016 15:52:Alyse Sanchez RN) : 0 (07/16/2016 15:52:Alyse Sanchez RN) Spontaneous Abortions: 0 (07/16/2016 15:52:Alyse Sanchez RN) Induced Abortions: 0 (07/16/2016 15:52:Alyse Sanchez RN) Livin (07/16/2016 15:52:Alyse Sanchez RN) Cesareans: 0 (07/16/2016 15:52:Alyse Sanchez RN) VBACs: 0 (07/16/2016 15:52:Alyse Sanchez RN) Ectopic: 0 (07/16/2016 15:52:Alyse Sanchez RN) Multiple Births: 0 (07/16/2016 15:52:Alyse Sanchez RN) Baby, Number in Womb: 1 (07/16/2016 15:52:Alyse Sanchez RN) CARE Primary Ship Runner: Other-Annotate (07/16/2016 15:52:Alyse Sanchez RN) Adequate Care: Yes (07/16/2016 15:52:Alyse Sanchez RN) Height (in): 62 (07/18/2016 12:09:QS system process) ALLERGIES Medication Allergy: No (07/16/2016 15:52:Alyse Sanchez RN) Medication Allergies: No Known Allergies (07/18/2016) (07/18/2016 00:32:QS system process) Latex Allergy: No Latex Allergies (07/16/2016 15:52:Alyse Sanchez RN) Food Allergies: N/A (07/16/2016 15:52:Alana Gallegos RN) Environmental Allergies: N/A (07/16/2016 15:52:Alana Gallegos RN) COMMUNICATION Primary Language: Grenadian (07/16/2016 15:52:Alyse Sanchez RN) Medical Tx Preferred Language: Montserratian (07/16/2016 15:52:Alyse Sanchez RN) Montserratian Communication Ability: Understands verbal communication; Speaks Montserratian; Reads Montserratian (07/16/2016 15:52:Alyse Sanchez RN) Communication Barrier(s): None (07/16/2016 15:52:Alyse Sanchez RN) DEMOGRAPHICS Address: [place] [address] (07/16/2016 15:40:QS system process) Zipcode: [address] (07/16/2016 15:40:QS system process) Home (07/16/2016 15:40:QS system process) SSN: [id number] (07/16/2016 15:40:QS system process) Next of Kin Name: MCKENZIE CRUZ (07/16/2016 15:40:QS system process) Next of Kin (07/16/2016 15:40:QS system process) Next of Kin Relationship: FA (07/16/2016 15:40:QS system process) Date of : 1990 (07/16/2016 15:40:QS system process) Marital Status: Single (07/16/2016 15:40:QS system process) Sex: Female (07/16/2016 15:40:QS system process) Race: Other (07/16/2016 15:40:QS system process) Ethnicity: or (07/16/2016 15:40:QS system process) Pentecostalism: Hoahaoism (07/16/2016 15:40:QS system process) DRUG AND ALCOHOL USE Alcohol: No (07/16/2016 15:52:Alyse Sanchez RN) Cigarettes: Former Smoker. [id number] (07/16/2016 15:52:Alyse Sanchez RN) Marijuana: No (07/16/2016 15:52:Alyse Sanchez RN) Cocaine: No (07/16/2016 15:52:Alyse Sanchez RN) Other Illicit Drugs: No (07/16/2016 15:52:Alyse Sanchez RN) VACCINE HISTORY Influenza Vaccine: Yes (07/16/2016 15:52:Alyse Sanchez RN) Pneumococcal Vaccine: No (07/16/2016 15:52:Alyse Sanchez RN) Tetanus Vaccine: Yes (07/16/2016 15:52:Alyse Sanchez RN) Tdap Vaccine: No (07/16/2016 15:52:Alyse Sanchez RN) Hepatitis B Vaccine: Yes (07/16/2016 15:52:Alyse Sanchez RN) Automatic Head Sawyer: [facility] (07/16/2016 15:52:Alyse Sanchez RN) Feeding Preference: Both (07/16/2016 15:52:Alyse Sanchez RN) Benefit of Breast Feed Discussed: Yes (07/16/2016 15:52:Alyse Sanchez RN) Circumcision: No (07/16/2016 15:52:Alyse Sanchez RN) Classes Attended: No (07/16/2016 15:52:Alyse Sanchez RN) Tubal Ligation: No (07/16/2016 15:52:Alyse Sanchez RN) Tubal Authorization Signed: N/A (07/16/2016 15:52:Alyse Sanchez RN) Consent: N/A (07/16/2016 15:52:Alyse Sanchez RN) Consent Signed: N/A (07/16/2016 15:52:Alyse Sanchez RN) Pain Management Plans: None (07/16/2016 15:52:Alyse Sanchez RN) Plans for Labor and Delivery: None (07/16/2016 15:52:Alyse Sanchez RN) Support Person: Cisco (07/16/2016 15:52:Alyse Sanchez RN) Support Person Relationship: (07/16/2016 15:52:Alyse Sanchez RN) Cultural/Spritual Practice: No (07/16/2016 15:52:Alyse Sanchez RN) Spir/Cult Dietary Needs: No (07/16/2016 15:52:Alyse Sanchez RN) LIVING SITUATION/DISCHARGE PLAN Living Arrangements: House (07/16/2016 15:52:Alyse Sanchez RN) Adequate Access to:: Electric; Heat; Refrigeration; Plumbing/Running water; Phone; Transportation (07/16/2016 15:52:Alyse Sanchez RN) WIC Program: Yes (07/16/2016 15:52:Alyse Sanchez RN) Discharge Hand Trimmer Person: Cisco (07/16/2016 15:52:Alyse Sanchez RN) Person to Help after Discharge: Cisco (07/16/2016 15:52:Alyse Sanchez RN) Currently Using Commun Resources: No (07/16/2016 15:52:Alyse Sanchez RN) Outside Agency/Evp Sales: No (07/16/2016 15:52:Alyse Sanchez RN) Car Seat for Discharge: Yes (07/16/2016 15:52:Alyse Sanchez RN) Adoption Requested: No (07/16/2016 15:52:Alyse Sanchez RN) Pt Contact w/ Post : N/A (07/16/2016 15:52:Alyse Sanchez RN) LABS Blood Type: O Positive (07/16/2016 15:52:Sara Quispe RN) Antibody Screen: Negative (07/16/2016 15:52:Sara Quispe RN) Rho(G) this : Not Applicable (07/16/2016 15:52:Sara Quispe RN) Hemoglobin: 12.8 (07/17/2016 23:10:QS system process) Hematocrit: 37.5 (07/17/2016 23:10:QS system process) MCV: 87 (07/17/2016 23:10:QS system process) Group Beta Strep: Negative (07/16/2016 15:52:Sara Quispe RN) Gonorrhea: Negative (07/16/2016 15:52:Sara Quispe RN) Chlamydia: Negative (07/16/2016 15:52:Sara Quispe RN) RPR/VDRL: Nonreactive (07/16/2016 15:52:Sara Quispe RN) HIV Results: Negative (07/16/2016 15:52:Sara Quispe RN) Hepatitis B: Negative (07/16/2016 15:52:Sara Quispe RN) Rubella: Immune (07/16/2016 15:52:Sara Quispe RN) Varicella: Non Susceptible (07/16/2016 15:52:Sara Quispe RN) Pap Test: Normal (07/16/2016 15:52:Sara Quispe RN) OB/PREVIOUS HISTORY Previous Procedures: Ultrasound; NST (07/16/2016 15:52:Alana Gallegos RN) Current Procedures: Ultrasound; NST (07/16/2016 15:52:Alana Gallegos RN) History of Previous : No (07/16/2016 15:52:Alana Gallegos RN) History of Gestational Diabetes: No (07/16/2016 15:52:Alana Gallegos RN) History of PIH: No (07/16/2016 15:52:Alana Gallegos RN) History of Incompetent Cervix: No (07/16/2016 15:52:Alana Gallegos RN) History of Placenta Previa/Abrup: No (07/16/2016 15:52:Alana Gallegos RN) History of Macrosomia: No (07/16/2016 15:52:Alana Gallegos RN) History of IUGR: No (07/16/2016 15:52:Alana Gallegos RN) History of Hemorrhage: No (07/16/2016 15:52:Alana Gallegos RN) History of Loss/Stillborn: No (07/16/2016 15:52:Alana Gallegos RN) History of : No (07/16/2016 15:52:Alana Gallegos RN) History of D (Rh) Sensitization: No (07/16/2016 15:52:Alana Gallegos RN) History Recurrent Loss/Stillborn: No (07/16/2016 15:52:Alana Gallegos RN) History Depression/PP Depression: No (07/16/2016 15:52:Alana Gallegos RN) History of Uterine Anomaly/RUPESH: No (07/16/2016 15:52:Alana Gallegos RN) History of Infertility: No (07/16/2016 15:52:Alana Gallegos RN) History of ART Treatment: No (07/16/2016 15:52:Alana Gallegos RN) History of RUPESH: No (07/16/2016 15:52:Alana Gallegos RN) Comments Obstetrical History: G1 - 09/2009, , Girl G2 - 11/2011, , Girl G3 - Current (07/16/2016 15:52:Alana Gallegos RN) MEDICAL HISTORY Med Hx Diabetes: No (07/16/2016 15:52:Alana Gallegos RN) Med Hx Hypertension: No (07/16/2016 15:52:Alana Gallegos RN) Med Hx Heart Disease: No (07/16/2016 15:52:Alana Gallegos RN) Med Hx Autoimmune Disorder: No (07/16/2016 15:52:Alana Gallegos RN) Med Hx Kidney Disease/UTI: No (07/16/2016 15:52:Alana Gallegos RN) Med Hx Neurologic/Epilepsy: No (07/16/2016 15:52:Alana Gallegos RN) Med Hx Psychiatric Disorders: No (07/16/2016 15:52:Alana Gallegos RN) Med Hx Hepatitis/Liver Disease: No (07/16/2016 15:52:Alana Gallegos RN) Med Hx Varicosities/Phlebitis: No (07/16/2016 15:52:Alana Gallegos RN) Med Hx Thyroid Dysfunction: No (07/16/2016 15:52:Alana Gallegos RN) Med Hx Trauma/Violence: No (07/16/2016 15:52:Alana Gallegos RN) Med Hx Blood Transfusion: No (07/16/2016 15:52:Alana Gallegos RN) Med Hx Pulmonary (Asthma,TB): No (07/16/2016 15:52:Alana Gallegos RN) Med Hx Breast: No (07/16/2016 15:52:Alana Gallegos RN) Med Hx MANAGER OF DIGITAL Surgery: No (07/16/2016 15:52:Alana Gallegos RN) Med Hx Hospitalization/Surgery: No (07/16/2016 15:52:Alana Gallegos RN) Med Hx Anesthetic Complications: No (07/16/2016 15:52:Alana Gallegos RN) Med Hx Abnormal Pap Smear: No (07/16/2016 15:52:Alana Gallegos RN) Other Medical Diseases: No (07/16/2016 15:52:Alana Gallegos, RN) Med Hx Significant Family Hx: No (07/16/2016 15:52:Alana Gallegos RN) INFECTIOUS HISTORY Inf Hx Gonorrhea: No (07/16/2016 15:52:Alana Gallegos RN) Inf Hx Chlamydia: Yes (07/16/2016 15:52:Alana Gallegos RN) Inf Hx Syphilis: No (07/16/2016 15:52:Alana Gallegos RN) Inf Hx HIV/AIDS: No (07/16/2016 15:52:Alana Gallegos RN) Inf Hx Human Papilloma Virus: No (07/16/2016 15:52:Alana Gallegos RN) Inf Hx Pt/Partner Genital Herpes: No (07/16/2016 15:52:Alana Gallegos RN) Inf Hx Tuberculosis/Exposure: No (07/16/2016 15:52:Alana Gallegos RN) Inf Hx Hepatitis B,C: No (07/16/2016 15:52:Alana Gallegos RN) Inf Hx Rash or Viral Illness: No (07/16/2016 15:52:Alana Gallegos RN) Details of Infectious Hx: Chlamydia 2013 (07/16/2016 15:52:Alana Gallegos RN) GENETIC HISTORY Gen Hx Age >=35 at [place]: No (07/16/2016 15:52:Alana Galelgos RN) Gen Hx Thalassemia: No (07/16/2016 15:52:Alana Gallegos RN) Gen Hx Congenital Heart Defect: No (07/16/2016 15:52:Alana Gallegos RN) Gen Hx Neural Tube Defect: No (07/16/2016 15:52:Alana Gallegos RN) Gen Hx Down's Syndrome: No (07/16/2016 15:52:Alana Gallegos RN) Gen Hx Heber-Sachs: No (07/16/2016 15:52:Alana Gallegos RN) Gen Hx Jr: No (07/16/2016 15:52:Alana Gallegos RN) Gen Hx Familial Dysautonomia: No (07/16/2016 15:52:Alana Gallegos RN) Gen Hx Sickle Cell Disease/Trait: No (07/16/2016 15:52:Alana Gallegos RN) Gen Hx Hemophilia/Blood Disorder: No (07/16/2016 15:52:Alana Gallegos RN) Gen Hx Muscular Dystrophy: No (07/16/2016 15:52:Alana Gallegos RN) Gen Hx Cystic Fibrosis: No (07/16/2016 15:52:Alana Gallegos RN) Gen Hx Huntingtons Chorea: No (07/16/2016 15:52:Alana Gallegos RN) Gen Hx Mental Retardation/Autism: Yes (07/16/2016 15:52:Alana Gallegos RN) Gen Hx Tested for Fragile X: No (07/16/2016 15:52:Alana Gallegos RN) Gen Hx Other Inher/Chromosomal: No (07/16/2016 15:52:Alana Gallegos RN) Gen Hx Maternal Metabolic DO: No (07/16/2016 15:52:Alana Gallegos RN) Gen Hx Pt Father or FOB Defect: No (07/16/2016 15:52:Alana Gallegos RN) Gen Hx Other Genetic History: No (07/16/2016 15:52:Alana Gallegos RN) Gen Hx Drugs/Meds since LMP: Yes (07/16/2016 15:52:Alana Gallegos RN) Gen Hx Medications: vitamins (07/16/2016 15:52:Alana Gallegos RN) Details of Genetic History: 2 Nephews - Autism (07/16/2016 15:52:Alana Gallegos RN)
--- NOTE | 2016-07-19 06:01 | L&D Current Admission ---
Current Admit Datetime Report Generated by CPN: 07/19/2016 06:00 ADMISSION INFORMATION Reason for Admission: Rupture of Membranes (07/18/2016 07:32:Juli Alba RN) Chief Complaint: Suspected Rupture of Membranes (07/17/2016 22:39:Alana Gallegos RN) Method of Arrival: Wheelchair (07/18/2016 07:32:Juli Alba RN) Admitted From: Home (07/18/2016 07:32:Juli Alba RN) Reason for Induction: Not Applicable (07/18/2016 07:32:Juli Alba RN) Records Available: Yes (07/18/2016 07:32:Juli Alba RN) BELONGINGS/ADVANCED DIRECTIVES Other Belongings: see signed belongings consent (07/18/2016 07:32:Juli Alba RN) Advance Direct for Healthcare: No, and Wants No Information (07/18/2016 07:32:Juli Alba RN) Pt Rights Information Given: Yes (07/18/2016 07:32:Juli Alba RN) Pt Understands Pt Rights: Yes (07/18/2016 07:32:Juli Alba RN) LEARNING ASSESSMENT Knowledge Level: Understands L_D Process (07/18/2016 07:32:Juli Alba RN)
--- NOTE | 2016-07-19 06:16 | L&D Care Plan ---
LD CARE PLANS Datetime Report Generated by CPN: 07/19/2016 06:15 Datetime: 07/17/2016 23:04 Pain State: Actual (Sara Quispe RN) Related To: Labor and Delivery Process; Treatment and Procedures; Post (Sara Quispe RN) Goal(s): Patients Pain will be Assessed and Managed; Patient will Verbalize Adequate Relief of Pain or the Ability to [place] with Current Pain (Sara Quispe RN) Interventions: Assess Pain Severity on Scale of 0 (None) to 5 (Severe); Assess Type, Location and Intensity of Pain Each Time Client Reports Discomfort and Notify Provider if Unusal Pain Develops; Encourage Proper Breathing and Relaxation Techniques; Offer Alternatives Such as Repositioning, Calm Environment, Massages, Diversional Activities, Ice Pack, Splinting, and Ambulation; Administer Analgesics as Ordered; Assist with Epidural Placement as Appropriate; Evaluate Therapeutic Effectiveness of Medication and Treatments (Sara Quispe RN) Outcome: Patient will Report Absence or Relief of Pain Consistent with Established Pain Goal (Sara Quispe RN) Status: Ongoing (Sara Quispe RN) Outcome: Patient will have a Decrease in Signs and Symptoms of Discomfort (Sara Quispe RN) Status: Ongoing (Sara Quispe RN) Outcome: Pain will be Controlled During Procedures (Sara Quispe RN) Status: Ongoing (Sara Quispe RN) Anxiety State: Risk For (Sara Quispe RN) Related To: Labor and Delivery Process; Situational Crisis; Significant Life Event (Sara Quispe RN) Goal(s): Patient will have Decreased Anxiety and be able to Function at Acceptable Levels (Sara Quispe RN) Interventions: Assess Verbal and Nonverbal Behavioral Indicators of Anxiety; Assist Patient to Identify and Verbalize Symptoms of Anxiety; Identify and Demonstrate Techniques to Control Anxiety; Assist Patient with Coping Mechanisms to Manage Anxiety; Provide Theraputic Touch for the Patient; Explain to Patient, Using a Calm Reassuring Approach and Nonmedical Terms, All Activities, Procedures, and Concerns; Instruct Patient and Family about Post Discharge Care, Limitations, Symptoms to Report and Resources Available (Sara Quispe RN) Outcome: Patient will Identify, Verbalize and Demonstrate Techniques to Control Anxiety (Sara Quispe RN) Status: Ongoing (Sara Quispe RN) Outcome: Patient's Posture, Facial Expressions, Gestures and Activity Level will Reflect Decreased Anxiety (Sara Quispe RN) Status: Ongoing (Sara Quispe RN) Outcome: Patient will Verbalize a Sense of Control and/or Acceptance of the Situation (Sara Quispe RN) Status: Ongoing (Sara Quispe RN) Outcome: Patient will Identify and Utilize Support Person (Sara Quispe RN) Status: Ongoing (Sara Quispe RN) Knowledge Deficit State: Risk For (Sara Quispe RN) Related To: Treatment and Procedures; Impending Alterations in Family Dynamics (Sara Quispe RN) Goal(s): Patient will Accurately Verbalize Understanding of Plan of Care and Treatment; Patient and Family will Accurately Verbalize Understanding of the Disease Process (Sara Quispe RN) Interventions: Assess Motivation and Willingness of Patient/Family to Learn; Assess Preferred Learning Mode: One to One Instruction, Reading, Videos, Group Discussion or Demonstration; Assess Barriers to Learning: Pain, Emotional State, Language Barrier, Cognitive Impairment, Visual or Hearing Deficits; Assess Patient and Family Knowledge of Disease Process, Medications and Treatment; Discuss Therapy and/or Treatment Options, Describe Rationale Behind Management, Therapy and Treatment Recommendations; Instruct Patient and Family on Signs and Symptoms to Report; Instruct Patient and Family on Medication Effects and Side Effects; Provide Appropriate and Timely Education Using Multiple Techniques; Provide Patient and Family with Support Group Information and Resources; Give Clear and Thorough Explanations and Demonstrations (Sara Quispe RN) Outcome: Patient and Family will Verbalize Understanding of Condition, Treatment and Signs and Symptoms to Report (Sara Quispe RN) Status: Ongoing (Sara Quispe RN) Outcome: Patient will Identify Perceived Learning Needs and Express Motivation to Learn (Sara Quispe RN) Status: Ongoing (Sara Quispe RN) Outcome: Patient will Verbalize Understanding of Desired Content, and/or Performs Desired Skill Prior to Discharge (Sara Quispe RN) Status: Ongoing (Sara Quispe RN) Infection State: Risk For (Sara Quispe RN) Related To: Premature/Prolonged Rupture of Membranes; Altered Tissue Integrity (Sara Quispe RN) Goal(s): The Patient will be Free of Infection, Vital Signs Stable and Lab Work within Normal Parameters (Sara Quispe RN) Interventions: Instruct and Reinforce Proper Handwashing, Hygiene, and Care Techniques to Patient and Family; Monitor Vital Signs; Monitor Patient for the Following Signs of Infection: Fever, Abdominal Tenderness, Unusual Discharge; Monitor Aminiotic Fluid, Urine and Lochia for Color and Odor; Observe Wounds, Incisions and Invasive Line Sites for Redness, Drainage and Edema; Assess IV Sites per Hospital Policy; Monitor Lab and Test Results and Notify Provider of Abnormal Findings; Assess Nutritional Status and Promote Good Nutrition (Sara Quispe RN) Outcome: Patient will Remain Free of Infection (Sara Quispe RN) Status: Ongoing (Sara Quispe RN) Outcome: Infection will be Recognized Early to Allow for Prompt Treatment (Sara Quispe RN) Status: Ongoing (Sara Quispe RN) Outcome: Patient will have Vital Signs Within Expected Range (Sara Quispe RN) Status: Ongoing (Sara Quispe RN) Fluid Volume State: Not Applicable (Sara Quispe RN) Injury State: Risk For (Sara Quispe RN) Related To: Labor and Delivery Process (Sara Quispe RN) Goal(s): Patient will Remain Free from Injury (Sara Quispe RN) Interventions: Monitoring as per Hospital Protocol; Assess Neurological Status; Perform Risk Assessment of Patients with Induction and ; Perform Fall Risk Assessment and Prevention per Hospital Protocol; Perform DVT Risk Assessment and Prophylaxis per Hospital Protocol; Ensure that Oxygen, Suction, and Resuscitation Medications and Equipment are Readily Available; Confirm Patient ID Prior to Procedure(s) and Medication Administration per Hospital Policy (Sara Quispe RN) Outcome: Successful Fall Risk Prevention (Sara Quispe RN) Status: Ongoing (Sara Quispe RN) Outcome: Patient will Deliver Infant without Adverse Sequela (Sara Qiuspe RN) Status: Ongoing (Sara Quispe RN) Outcome: Patient's Neurological Status will Remain Stable (Sara Quispe RN) Status: Ongoing (Sara Quispe RN) Impaired Skin Integrity State: Risk For (Sara Quispe RN) Related To: Vaginal Delivery; Altered Tissue Integrity; Invasive Procedures (Sara Quispe RN) Goal(s): Patient will Maintain Optimal Skin Integrity, Free of Breakdown, Injury or Infection (Sara Quispe RN) Interventions: Complete Screening for Pressure Ulcer Risk and Initiate Protocol per Hospital Policy; Monitor Site of Skin Impairment for Color Changes, Redness, Swelling, Warmth, Pain or Other Signs of Infection; Encourage and Assist with Position Changes; Monitor Patient's Mobility Status; Provide Adequate Nutrition and Fluids; Teach Patient Appropriate Hygienic Care; Teach Patient/Family Skin Care Management (Sara Quispe RN) Outcome: Patient will not have Evidence of Injury Such as Skin Breakdown, Scrapes, Cuts, or Bruising (Sara Quispe RN) Status: Ongoing (Sara Quispe RN) Outcome: Patient will Report Any Altered Sensation or Pain at Site of Skin Impairment (Sara Quispe RN) Status: Ongoing (Sara Quispe RN) Outcome: Patients Incisions and Wounds will be without Signs or Symptoms of Infection (Sara Quispe RN) Status: Ongoing (Sara Qusipe RN) Outcome: Patient will Demonstrate Understanding of Plan to Heal Skin and Prevent Reinjury and Verbalize Risk Factors (Sara Quispe RN) Status: Ongoing (Sara Quispe RN) Parenting Impaired State: Not Applicable (Sara Quispe RN)
[2016-07-19 07:46] LABS: HEMATOCRIT 33.9 % (36.0-47.0); HEMOGLOBIN 11.8 g/dL (12.0-15.5); HGB HCT DIFFERENCE 1.5; MEAN CORPUSCULAR HEMOGLOBIN 30.7 pg (27.0-33.4); MEAN CORPUSCULAR VOLUME 88 fl (80-97); RED BLOOD COUNT 3.85 10^6/uL (3.72-5.28); RED CELL DISTRIBUTION WIDTH 13.7 % (11.5-14.0); WHITE BLOOD COUNT 8.6 10^3/uL (4.0-10.5)
[2016-07-19] MEDS: FERROUS SULFATE 325 MG TABLET PO SCH ×2 (10:29→18:54)
[2016-07-19] MEDS: PRENATAL VITAMIN W-O CA NO5/FE FUMARATE/FA CAPSULE PO SCH (10:29)
[2016-07-19] MEDS: DOCUSATE SODIUM 100 MG CAPSULE PO SCH ×2 (10:30→18:55)
[2016-07-19] MEDS: SENNOSIDES/DOCUSATE 8.6-50 MG 1 EACH TABLET PO SCH (10:30)
--- NOTE | 2016-07-19 10:44 | PDOC PROGRESS REPORT ---
Subjective-OB Subjective: Post Delivery Day: 26 year old. Denies any needs at this time Doing well, no c/o, , voiding, ambulating Physical Exam (OB) Vital Signs: Temp Pulse Resp BP Pulse Ox 97.3 F 56 L 16 110/62 100 07/19/16 08:26 07/19/16 08:26 07/19/16 08:26 07/19/16 08:26 07/19/16 08:26 Intake & Output 07/18/16 07/19/16 07/20/16 06:59 06:59 06:59 Weight 75.7 kg - PIH/Pre-Eclampsia Epigastric Pain: No Visual Changes: No - Lochia Lochia Amount: Small 10-25 ml Lochia Color: Rubra/Red - Abdomen Description: Soft Hernia Present: No Fundal Description: Firm Fundal Height: u/u - u/2 Objective-Diagnostic Laboratory: 07/19/16 07:19 07/19/16 07:19 WBC 8.6 RBC 3.85 Hgb 11.8 L Hct 33.9 L MCV 88 MCH 30.7 MCHC 35.0 RDW 13.7 Plt Count 167 Assessment and Plan(PN) - Assessment and Plan (1) Vaginal delivery Is this a current diagnosis for this admission?: Yes - Time Spent with Patient Time with patient: Less than 15 minutes Medications reviewed and adjusted accordingly: Yes - Disposition Anticipated Discharge: Home Within: within 24 hours
[2016-07-20] MEDS: IBUPROFEN 800 MG TABLET PO SCH (05:36)
[2016-07-20 08:38] VITALS: BP 109/68
[2016-07-20] MEDS: DOCUSATE SODIUM 100 MG CAPSULE PO SCH (11:06)
[2016-07-20] MEDS: FERROUS SULFATE 325 MG TABLET PO SCH (11:07)
[2016-07-20] MEDS: SENNOSIDES/DOCUSATE 8.6-50 MG 1 EACH TABLET PO SCH (11:07)
[2016-07-20] MEDS: PRENATAL VITAMIN W-O CA NO5/FE FUMARATE/FA CAPSULE PO SCH (11:07)
--- NOTE | 2016-07-20 11:34 | PDOC DISCHARGE SUMMARY ---
Final Diagnosis Discharge Date: 07/20/16 - Final Diagnosis (1) Vaginal delivery Is this a current diagnosis for this admission?: Yes Discharge Data - Discharge Medication Home Medications: Vit/Iron Fumarate/FA [ Tablet] 1 each PO DAILY 07/16/16 Reason(s) for Admission: Onset of Labor Procedures: NST Intrapartum Procedure(s): Spontaneous Vaginal Delivery - Diagnosis Test Laboratory: Temp Pulse Resp BP Pulse Ox 98.3 F 55 L 16 109/68 99 07/20/16 07:50 07/20/16 07:50 07/20/16 07:50 07/20/16 07:50 07/20/16 07:50 07/17/16 07/17/16 07/19/16 22:25 23:10 07:19 RBC 4.29 3.85 Hgb 12.8 11.8 L Hct 37.5 33.9 L Urine Opiates Screen NEGATIVE - Discharge information/Instructions Discharge Activity: Activity As Tolerated, Pelvic Rest Discharge Diet: Regular Disposition: HOME, SELF-CARE Follow up with: [facility] in: 4, Weeks
== END 2016-07-20 12:27 | disposition home or self-care (01) | DRG 775 ==
LOC: LC 22:02 → LR 22:50 → 2N 07-18 12:08
PROVIDERS: ADMIT Obstetrics & Gynecology; ATTEND Obstetrics & Gynecology
PROC: 4A1HXCZ Monitoring of Products of Conception, Cardiac Rate, External Approach (ICD-10-PCS; 2016-07-17)
PROC: 10E0XZZ Delivery of Products of Conception, External Approach (ICD-10-PCS; principal; 2016-07-18)
DX: O80 Encounter for full-term uncomplicated delivery (principal); Z87.891 Personal history of nicotine dependence; Z3A.39 39 weeks gestation of pregnancy; Z37.0 Single live birth
CPT/HCPCS: 36415; 80307; 81005; 84112; 85025; 85027; 86592; 86850; 86900; 86901; J2590; J3490